=== PATIENT | female | born 1960 | race African-American/Black ===

== ENCOUNTER 2018-04-22 03:23 | Inpatient (IN) | payer OTHER ==
[2018-04-22] VITALS (8 sets, daily range): BP systolic 98–165; BP diastolic 52–96
[~2018-04-22] VITALS: Ht 172.7 cm; Wt 75.7 kg
[2018-04-22] MEDS ORDERED: ONDANSETRON HCL 4MG/2ML INJ IV ONE (07:00)
[2018-04-22] MEDS ORDERED: FENTANYL CITRATE/PF 50MCG/ML 2ML VIAL IV ONE ×2 (07:00→07:45)
[2018-04-22] MEDS ORDERED: NITROGLYCERIN OINT 1GM/INCH UDPKT TD ONE (07:45)
[2018-04-22 07:59] LABS: BASOPHILS % 0.7 % (0.0-2.0); CHLORIDE 109 mEq/L (98-107); HEMATOCRIT. 40.7 % (36.0-48.0); HEMOGLOBIN. 13.4 g/dL (12.0-16.0); LYMPHOCYTES % 20.1 % (20.0-50.0); MEAN CORPUSCULAR HEMOGLOBIN 30.8 pg (28.0-32.0); MEAN CORPUSCULAR VOLUME 93.5 fL (81.0-99.0); MEAN PLATELET VOLUME 6.8 fl (7.4-10.4); MONOCYTES % 0.9 % (2.0-8.0); NEUTROPHILS % 78.3 % (40.0-76.0); PLATELET 269 x1000/uL (130-400); RED BLOOD CELL COUNT 4.36 mill/uL (4.2-5.4); RED CELL DISTRIBUTION WIDTH 13.9 % (11.6-14.6)
[2018-04-22 08:06] LABS: CREATINE KINASE 71 IU/L (26-192); PARTIAL THROMBOPLASTIN TIME 29.9 sec (23.4-31.0)
[2018-04-22 08:09] LABS: CREATINE KINASE MB FRACTION 1.7 ng/mL (0.5-3.6)
[2018-04-22] MEDS ORDERED: ATEN-42 MT (12:44)
[2018-04-22] MEDS ORDERED: GABA-531 MT (12:44)
[2018-04-22] MEDS ORDERED: ASPI-1158 MT (12:44)
[2018-04-22] MEDS ORDERED: NITR0.4T49 SL (12:44)
[2018-04-22] MEDS ORDERED: METF-815 MT (12:44)
[2018-04-22] MEDS ORDERED: ROSU5TAB MT (12:44)
[2018-04-22] MEDS ORDERED: POTA99TA4 MT (12:44)
[2018-04-22] MEDS ORDERED: ISOS10TA53 MT (12:44)
[2018-04-22] MEDS ORDERED: OMEP20TA15 MT (12:46)
[2018-04-22] MEDS: ASPIRIN 81MG TABLET PO SCH (13:21)
[2018-04-22] MEDS: CLOPIDOGREL 75MG TABLET PO SCH (13:21)
[2018-04-22] MEDS: ENOXAPARIN 80MG/0.8ML SYR SUBCUT SCH ×2 (13:22→23:07)
[2018-04-22] MEDS ORDERED: LACT10SO6 MT (13:43)
[2018-04-22] MEDS ORDERED: DEXTROSE 50% WATER 50ML SYRINGE IV PRN (13:45)
[2018-04-22] MEDS ORDERED: DOCUSATE SODIUM 100MG CAPSULE PO PRN (14:00)
[2018-04-22] MEDS ORDERED: MAGNESIUM/ALUMINUM HYDROXIDE/SIMETHICONE 30ML UDC PO PRN (14:00)
[2018-04-22] MEDS ORDERED: ACETAMINOPHEN 325MG TABLET PO PRN (14:00)
[2018-04-22] MEDS ORDERED: MORPHINE SULFATE 4 MG/ML CPJ (NOT FOR IM USE) IV PRN (14:00)
[2018-04-22] MEDS ORDERED: GUAIFENESIN 200MG/10ML SUGAR FREE UDC PO PRN (14:00)
[2018-04-22] MEDS ORDERED: CLONIDINE 0.1MG TABLET PO PRN (14:00)
[2018-04-22] MEDS ORDERED: ENOXAPARIN 40MG/0.4ML SYR SUBCUT SCH (14:00)
[2018-04-22] MEDS ORDERED: ONDANSETRON HCL 4MG/2ML INJ IV PRN (14:00)
[2018-04-22 16:00] LABS: *AMPHETAMINES SCREEN URINE NEGATIVE (NEGATIVE); *BARBITURATES SCREEN URINE NEGATIVE (NEGATIVE); *BENZODIAZEPINES SCREEN URINE NEGATIVE (NEGATIVE); *COCAINE SCREEN URINE NEGATIVE (NEGATIVE); CANNABINOID URINE SCREEN PRESUMTIVE POSITIVE (NEGATIVE); METHADONE URINE SCREEN NEGATIVE (NEGATIVE); OPIATES URINE SCREEN NEGATIVE (NEGATIVE); PHENCYCLIDINE URINE SCREEN NEGATIVE (NEGATIVE)
[2018-04-22 16:00] LABS: T4 FREE 1.65 ng/dL (0.76-1.46)
[2018-04-22] MEDS: NITROGLYCERIN OINT 1GM/INCH UDPKT TD SCH ×2 (16:26→22:38)
[2018-04-22] MEDS: INSULIN LISPRO 100 UNITS/ML SUBCUT SCH ×2 (18:00→22:51)
[2018-04-22] MEDS: BLOOD SUGAR DIAGNOSTIC STRIP TEST SCH ×2 (18:12→21:00)
[2018-04-23] VITALS (11 sets, daily range): BP systolic 94–118; BP diastolic 51–68
[2018-04-23] MEDS: NITROGLYCERIN OINT 1GM/INCH UDPKT TD SCH ×3 (05:46→21:04)
[2018-04-23] MEDS ORDERED: DULO20CA17 PO (07:01)
[2018-04-23] MEDS ORDERED: LISI-186 PO (07:01)
[2018-04-23] MEDS: INSULIN LISPRO 100 UNITS/ML SUBCUT SCH ×4 (08:00→21:00)
[2018-04-23] MEDS: BLOOD SUGAR DIAGNOSTIC STRIP TEST SCH ×4 (08:15→21:03)
[2018-04-23] MEDS: CLOPIDOGREL 75MG TABLET PO SCH (08:21)
[2018-04-23] MEDS: ASPIRIN 81MG TABLET PO SCH (08:22)
[2018-04-23 08:49] LABS: BASOPHILS % 0.5 % (0.0-2.0); EOSINOPHILS % 1.1 % (0.0-5.0); HEMATOCRIT. 36.3 % (36.0-48.0); LYMPHOCYTES % 55.8 % (20.0-50.0); MEAN CORPUSCULAR HEMOGLOBIN 30.9 pg (28.0-32.0); MEAN CORPUSCULAR VOLUME 93.5 fL (81.0-99.0); MEAN PLATELET VOLUME 6.7 fl (7.4-10.4); MONOCYTES % 4.4 % (2.0-8.0); NEUTROPHILS % 38.2 % (40.0-76.0); PLATELET 263 x1000/uL (130-400); RED BLOOD CELL COUNT 3.88 mill/uL (4.2-5.4); RED CELL DISTRIBUTION WIDTH 13.7 % (11.6-14.6)
[2018-04-23] MEDS ORDERED: AMLODIPINE 10MG TABLET PO SCH (09:00)
[2018-04-23 09:14] LABS: CHLORIDE 110 mEq/L (98-107)
[2018-04-23 09:23] LABS: CREATINE KINASE 43 IU/L (26-192)
[2018-04-23 09:25] LABS: CREATINE KINASE MB FRACTION 1.9 ng/mL (0.5-3.6)
[2018-04-23 16:04] LABS: CREATINE KINASE MB FRACTION 1.4 ng/mL (0.5-3.6)
== END 2018-04-24 00:11 | disposition short-term general hospital (02) | DRG 311 ==
LOC: ER 03:23 → EDBEDREQSVC 07:48 → 5EST 08:12 → EDBEDREQ 08:18 → ENRESERV 09:45
PROVIDERS: ADMIT Hospitalist; ATTEND Hospitalist
DX: I24.9 Acute ischemic heart disease, unspecified (principal); I10 Essential (primary) hypertension; E78.5 Hyperlipidemia, unspecified; E11.9 Type 2 diabetes mellitus without complications; K21.9 Gastro-esophageal reflux disease without esophagitis; Z87.891 Personal history of nicotine dependence; Z91.041 Radiographic dye allergy status; I25.2 Old myocardial infarction; Z86.73 Personal history of transient ischemic attack (TIA), and cerebral infarction without residual deficits
CPT/HCPCS: 36415; 71045; 78582; 80061; 80305; 82550; 82553; 82962; 83036; 83880; 84439; 84443; 84484; 85379; 93005; 93306; 93970; 96374; 96375; 99291; A9558; J1650; J1815; J2270; J2405; J3010

== ENCOUNTER 2018-05-01 23:59 | Inpatient (IN) | payer OTHER ==
[~2018-05-01] VITALS: Ht 170.2 cm; Wt 77.7 kg
[~2018-05-01 23:59] MED LIST: ASPI-1158 MT; ATEN-42 MT; DULO20CA17 PO; GABA-531 MT; ISOS10TA53 MT; LACT10SO6 MT; LISI-186 PO; METF-815 MT; NITR0.4T49 SL; OMEP20TA15 MT; POTA99TA4 MT; ROSU5TAB MT
[2018-05-02] MEDS ORDERED: MORPHINE SULFATE 4 MG/ML CPJ (NOT FOR IM USE) IV STA (03:29)
[2018-05-02] MEDS ORDERED: SODIUM CHLORIDE 0.9% 1,000 ML IV ONE (03:29)
[2018-05-02 04:36] LABS: PROTHROMBIN TIME 10.1 sec (9.1-11.1)
[2018-05-02 04:37] LABS: CHLORIDE 108 mEq/L (98-107)
[2018-05-02 04:46] LABS: CREATINE KINASE 33 IU/L (26-192)
[2018-05-02 04:49] LABS: BASOPHILS % 0.3 % (0.0-2.0); HEMATOCRIT. 33.7 % (36.0-48.0); HEMOGLOBIN. 11.2 g/dL (12.0-16.0); LYMPHOCYTES % 42.6 % (20.0-50.0); MEAN CORPUSCULAR HEMOGLOBIN 30.8 pg (28.0-32.0); MEAN CORPUSCULAR VOLUME 92.3 fL (81.0-99.0); MONOCYTES % 5.3 % (2.0-8.0); NEUTROPHILS % 49.8 % (40.0-76.0); PLATELET 241 x1000/uL (130-400); RED BLOOD CELL COUNT 3.64 mill/uL (4.2-5.4); RED CELL DISTRIBUTION WIDTH 13.2 % (11.6-14.6)
[2018-05-02 06:08] LABS: CLARITY URINE CLEAR (CLEAR); COLOR URINE YELLOW (YELLOW); KETONES URINE NEGATIVE (NEGATIVE); LEUKOCYTE ESTERASE URINE 2+ (NEGATIVE); NITRITE URINE NEGATIVE (NEGATIVE); OCCULT BLOOD URINE NEGATIVE (NEGATIVE); PROTEIN URINE NEGATIVE (NEGATIVE); UROBILINOGEN URINE 0.2 E.U./dL (0.2-1.0)
[2018-05-02] MEDS ORDERED: DOCUSATE SODIUM 100MG CAPSULE PO PRN (17:15)
[2018-05-02] MEDS ORDERED: IPRATROPIUM/ALBUTEROL 0.5-3(2.5)MG/3ML NEB INH PRN (17:15)
[2018-05-02] MEDS ORDERED: ONDANSETRON HCL 4MG/2ML INJ IV PRN (17:15)
[2018-05-02] MEDS ORDERED: LORAZEPAM 0.5MG TABLET PO PRN (17:15)
[2018-05-02] MEDS ORDERED: ACETAMINOPHEN 325MG TABLET PO PRN (17:15)
[2018-05-02] MEDS ORDERED: GUAIFENESIN 200MG/10ML SUGAR FREE UDC PO PRN (17:15)
[2018-05-02] MEDS ORDERED: NITROGLYCERIN 0.4MG TABLET SL SL PRN (17:15)
[2018-05-02] MEDS ORDERED: MAGNESIUM/ALUMINUM HYDROXIDE/SIMETHICONE 30ML UDC PO PRN (17:15)
[2018-05-02] MEDS ORDERED: CLONIDINE 0.1MG TABLET PO PRN (17:15)
[2018-05-02] MEDS ORDERED: TRAMADOL 50MG TABLET PO PRN (17:30)
[2018-05-02 18:25] LABS: *AMPHETAMINES SCREEN URINE NEGATIVE (NEGATIVE); *BARBITURATES SCREEN URINE NEGATIVE (NEGATIVE); *BENZODIAZEPINES SCREEN URINE NEGATIVE (NEGATIVE); *COCAINE SCREEN URINE NEGATIVE (NEGATIVE); METHADONE URINE SCREEN NEGATIVE (NEGATIVE); OPIATES URINE SCREEN NEGATIVE (NEGATIVE)
[2018-05-02 18:26] LABS: CANNABINOID URINE SCREEN NEGATIVE (NEGATIVE); PHENCYCLIDINE URINE SCREEN NEGATIVE (NEGATIVE)
[2018-05-02] MEDS ORDERED: CEFTRIAXONE 1 G PREMIX 50 ML IV SCH (20:30)
[2018-05-02] MEDS ORDERED: DEXTROSE 50% WATER 50ML SYRINGE IV PRN (20:45)
[2018-05-02] MEDS: INSULIN LISPRO 100 UNITS/ML SUBCUT SCH (21:00)
[2018-05-02] MEDS ORDERED: NA PHOS,M-B/NA PHOS,DI-BA ENEMA 118ML PR PRN (21:00)
[2018-05-02] MEDS ORDERED: ZOLPIDEM TARTRATE 5MG TABLET PO PRN (21:00)
[2018-05-02] MEDS: BLOOD SUGAR DIAGNOSTIC STRIP TEST SCH (21:00)
[2018-05-02 22:00] VITALS: BP_SYST 155; BP_DIAS 68; BP_DIAS 98
[2018-05-02] MEDS ORDERED: ATORVASTATIN CALCIUM 10MG TABLET PO SCH (22:00)
[2018-05-02 22:51] VITALS: BP 155/58
[2018-05-02 23:33] LABS: CREATINE KINASE MB FRACTION 1.5 ng/mL (0.5-3.6)
[2018-05-03] VITALS: BP 153/60
[2018-05-03] MEDS ORDERED: CEFTRIAXONE 1,000 MG in DEXTROSE 5% WATER 50 ML IV SCH ×2
[2018-05-03 04:00] VITALS: BP 129/75
[2018-05-03] MEDS: INSULIN LISPRO 100 UNITS/ML SUBCUT SCH (06:10)
[2018-05-03] MEDS: BLOOD SUGAR DIAGNOSTIC STRIP TEST SCH (06:10)
[2018-05-03] MEDS ORDERED: SUCRALFATE 1 G/10 ML UDC PO SCH (06:45)
[2018-05-03 08:00] VITALS: BP 132/65
[2018-05-03 08:18] LABS: CREATINE KINASE MB FRACTION 1.1 ng/mL (0.5-3.6)
[2018-05-03] MEDS ORDERED: METOPROLOL TARTRATE 25MG TABLET PO SCH (09:00)
[2018-05-03] MEDS ORDERED: ASPIRIN 325MG EC TABLET PO SCH (09:00)
[2018-05-03] MEDS ORDERED: ISOSORBIDE MONONITRATE 30MG TABLET SR 24HR PO SCH (09:00)
[2018-05-03] MEDS ORDERED: ENOXAPARIN 40MG/0.4ML SYR SUBCUT SCH (09:00)
[2018-05-03] MEDS ORDERED: FAMOTIDINE 20MG TABLET PO SCH (09:00)
[2018-05-03 12:27] VITALS: BP 120/49
[2018-05-03 13:53] VITALS: BP 120/49
== END 2018-05-03 14:30 | disposition home or self-care (01) | DRG 313 ==
LOC: ER 23:59 → 5WST 05-02 05:18 → ENRESERV 05-02 20:22 → 5WST 05-02 22:32
PROVIDERS: ADMIT Internal Medicine; ATTEND Internal Medicine
DX: R07.89 Other chest pain (principal); E44.1 Mild protein-calorie malnutrition; N39.0 Urinary tract infection, site not specified; E11.9 Type 2 diabetes mellitus without complications; E78.00 Pure hypercholesterolemia, unspecified; I10 Essential (primary) hypertension; Z79.4 Long term (current) use of insulin; Z88.2 Allergy status to sulfonamides; Z88.5 Allergy status to narcotic agent; Z68.26 Body mass index [BMI] 26.0-26.9, adult
CPT/HCPCS: 36415; 71045; 80061; 80305; 82550; 82553; 82962; 83036; 83880; 84484; 93005; 93970; 96361; 96374; 99285; J0696; J1650; J2270; J7030; J7060